=== PATIENT | male | born 1965 | race Caucasian/White ===

== ENCOUNTER → 2021-12-11 | Day surgery (SDC) | payer OTHER ==
[2021-12-07 15:31] LABS: BASOPHILS # (AUTO) 0.1 (0.0-0.1); BASOPHILS % 0.6 % (0.0-1.0); EOSINOPHILS # (AUTO) 0.1 (0.0-0.4); EOSINOPHILS % 1.4 % (0.0-6.0); HEMATOCRIT 46.3 % (38.2-49.6); HEMOGLOBIN 15.1 g/dL (14.0-18.0); LYMPHOCYTES # (AUTO) 2.7 (1.0-3.2); LYMPHOCYTES % 26.1 % (18.0-39.1); MEAN CORPUSCULAR HEMOGLOBIN 28.7 pg (28-32); MEAN CORPUSCULAR HGB CONC 32.6 g/dL (31-35); MEAN CORPUSCULAR VOLUME 87.9 fL (81-99); MONOCYTES # (AUTO) 1.1 (0.2-0.8); NEUTROPHILS # (AUTO) 6.2 (2.1-6.9); NEUTROPHILS % 60.5 % (38.7-80.0); PLATELET COUNT 207 x10e3/uL (140-360); RED BLOOD COUNT 5.27 x10e6/uL (4.3-5.7); RED CELL DISTRIBUTION WIDTH 12.6 % (11.7-14.4)
[2021-12-07 15:54] LABS: ANION GAP 14.2 mmol/L (8-16); CALCIUM 8.9 mg/dL (8.4-10.2); CREATININE, SERUM 1.12 mg/dL (0.72-1.25); POTASSIUM 4.2 mmol/L (3.5-5.1)
[~2021-12-11] MED LIST: BUPIVACAINE 0.25% 30ML SDV ONE; DEXAMETHASONE SOD PHOS INJ 4 MG/ML SDV ONE; FARXIGA10 MG PO; FENTANYL CITRATE/PF 100MCG/2 ML INJ ONE; GLIPIZIDE ER2.5 MG PO; JANUVIA25 MG PO; LIDOCAINE 1% W/EPINEPHRINE 20 ML VIAL ONE; LIPITOR10 MG PO; LISINOPRIL2.5 MG PO; METFORMIN HCL500 MG PO; MIDAZOLAM HCL 2 MG/2 ML VIAL ONE; ONDANSETRON HCL INJ 2MG/ML 2ML 2 MG/ML VIAL ONE; POVIDONE IODINE 0.05% 0.05 % ML PO ONE; PROPOFOL IV EMULSION 10 MG/ML 20 ML VIAL ONE; SEVOFLURANE INHAL SOLN 250 ML PEN BTL ONE; SIMVASTATIN20 MG PO
[2021-12-11 11:20] VITALS: BP 117/68
== END | disposition home or self-care (01) ==
LOC: OR 06:35
PROVIDERS: ATTEND Surgery
DX: K40.90 Unilateral inguinal hernia, without obstruction or gangrene, not specified as recurrent (principal); D17.6 Benign lipomatous neoplasm of spermatic cord; E11.9 Type 2 diabetes mellitus without complications; I10 Essential (primary) hypertension; Z01.810 Encounter for preprocedural cardiovascular examination; Z01.812 Encounter for preprocedural laboratory examination; Z20.822 Contact with and (suspected) exposure to COVID-19; Z88.0 Allergy status to penicillin; Z79.84 Long term (current) use of oral hypoglycemic drugs; Z79.899 Other long term (current) drug therapy; Z86.16 Personal history of COVID-19
CPT/HCPCS: 0223U; 36415 ×2; 49505; 80048; 82948; 85025; 93005; C1781; J1100; J2250; J2405; J2704; J3010

== ENCOUNTER 2024-06-09 20:21 | Inpatient (IN) | payer BC ==
[~2024-06-09] VITALS: Ht 175.3 cm; Wt 104.3 kg
[2024-06-09 20:21] VITALS: TEMP 98.9
[~2024-06-09 20:21] MED LIST changes: -BUPIVACAINE 0.25% 30ML SDV ONE; -DEXAMETHASONE SOD PHOS INJ 4 MG/ML SDV ONE; -FENTANYL CITRATE/PF 100MCG/2 ML INJ ONE; -LIDOCAINE 1% W/EPINEPHRINE 20 ML VIAL ONE; -MIDAZOLAM HCL 2 MG/2 ML VIAL ONE; -ONDANSETRON HCL INJ 2MG/ML 2ML 2 MG/ML VIAL ONE; -POVIDONE IODINE 0.05% 0.05 % ML PO ONE; -PROPOFOL IV EMULSION 10 MG/ML 20 ML VIAL ONE; -SEVOFLURANE INHAL SOLN 250 ML PEN BTL ONE
[2024-06-09 20:43] LABS: BASOPHILS # (AUTO) 0.1 (0.0-0.1); BASOPHILS % 0.5 % (0.0-1.0); EOSINOPHILS # (AUTO) 0.3 (0.0-0.4); EOSINOPHILS % 2.5 % (0.0-6.0); HEMATOCRIT 46.7 % (38.2-49.6); HEMOGLOBIN 15.5 g/dL (14.0-18.0); LYMPHOCYTES # (AUTO) 3.3 (1.0-3.2); LYMPHOCYTES % 31.5 % (18.0-39.1); MEAN CORPUSCULAR HGB CONC 33.2 g/dL (31-35); MEAN CORPUSCULAR VOLUME 87.5 fL (81-99); MONOCYTES # (AUTO) 1.1 (0.2-0.8); MONOCYTES % 10.4 % (4.4-11.3); NEUTROPHILS # (AUTO) 5.8 (2.1-6.9); NEUTROPHILS % 54.5 % (38.7-80.0); PLATELET COUNT 217 x10e3/uL (140-360); RED BLOOD COUNT 5.34 x10e6/uL (4.3-5.7); WHITE BLOOD COUNT 10.61 x10e3/uL (4.8-10.8)
[2024-06-09 20:57] LABS: INR 0.9; PROTHROMBIN TIME 12.7 seconds (11.9-14.5)
[2024-06-09 21:07] LABS: ALBUMIN 4.3 g/dL (3.5-5.0); ALBUMIN/GLOBULIN RATIO 1.3 (0.8-2.0); ANION GAP 15.1 mmol/L (8-16); BILIRUBIN,TOTAL 1.4 mg/dL (0.2-1.2); CALCIUM 9.2 mg/dL (8.4-10.2); CREATININE, SERUM 1.19 mg/dL (0.72-1.25); POTASSIUM 4.1 mmol/L (3.5-5.1); TOTAL PROTEIN 7.7 g/dL (6.5-8.1)
[2024-06-09 21:11] LABS: AMMONIA 41 UG/DL (31-123)
[2024-06-09 21:13] LABS: TROPONIN I 0.143 ng/mL (0-0.300)
[2024-06-09] MEDS: SODIUM CHLORIDE 0.9% 1000ML 1,000 ML IV STA (21:13)
[2024-06-09 21:16] LABS: B-TYPE NATRIURETIC PEPTIDE2 < 10.0 pg/mL (0-100)
[2024-06-09] MEDS ORDERED: ONDANSETRON HCL INJ 2MG/ML 2ML 2 MG/ML VIAL IV PRN (22:45)
[2024-06-09] MEDS ORDERED: Morphine 2mg Syringe 2 MG/ML SYR IV PRN (22:45)
[2024-06-09 23:30] VITALS: PULSE 59
[2024-06-09] MEDS: ASPIRIN 325 MG TAB PO STA (23:36)
[2024-06-09] MEDS: SODIUM CHLORIDE 0.9% 1000ML 1,000 ML IV SCH (23:36)
[2024-06-10] VITALS (9 sets, daily range): BP systolic 139–150; BP diastolic 78–86; PULSE 50–59; RESP 18–20; TEMP 97.3–98.4; O2SAT 97–100
[2024-06-10 06:34] LABS: BASOPHILS % 0.4 % (0.0-1.0); EOSINOPHILS # (AUTO) 0.1 (0.0-0.4); EOSINOPHILS % 1.6 % (0.0-6.0); LYMPHOCYTES # (AUTO) 2.3 (1.0-3.2); MEAN CORPUSCULAR HGB CONC 33.3 g/dL (31-35); MEAN CORPUSCULAR VOLUME 87.1 fL (81-99); MONOCYTES % 11.8 % (4.4-11.3); NEUTROPHILS # (AUTO) 4.7 (2.1-6.9); NEUTROPHILS % 57.7 % (38.7-80.0); PLATELET COUNT 188 x10e3/uL (140-360); RED BLOOD COUNT 4.82 x10e6/uL (4.3-5.7); RED CELL DISTRIBUTION WIDTH 13.1 % (11.7-14.4); WHITE BLOOD COUNT 8.13 x10e3/uL (4.8-10.8)
[2024-06-10 07:16] LABS: ALBUMIN 3.6 g/dL (3.5-5.0); ALBUMIN/GLOBULIN RATIO 1.4 (0.8-2.0); ANION GAP 11.8 mmol/L (8-16); BILIRUBIN,TOTAL 1.5 mg/dL (0.2-1.2); CALCIUM 8.2 mg/dL (8.4-10.2); CREATININE, SERUM 0.83 mg/dL (0.72-1.25); POTASSIUM 3.8 mmol/L (3.5-5.1); TOTAL PROTEIN 6.2 g/dL (6.5-8.1)
[2024-06-10 07:51] LABS: TROPONIN I 0.126 ng/mL (0-0.300)
[2024-06-10] MEDS ORDERED: SODIUM CHLORIDE 0.9% 100 ML ONE (08:27)
[2024-06-10] MEDS ORDERED: IOPAMIDOL 370 MG/ML 100 ML INFUS..BTL INJ ONE (08:27)
[2024-06-10] MEDS ORDERED: GADOBENATE DIMEGLUMINE 1 ML IV ONE (08:49)
[2024-06-10 14:50] LABS: TROPONIN I 0.131 ng/mL (0-0.300)
[2024-06-10] MEDS: CLOPIDOGREL BISULFATE 75 MG TAB PO SCH (17:10)
[2024-06-10] MEDS: ASPIRIN 81 MG CHEW TAB PO SCH (17:10)
[2024-06-10] MEDS: METFORMIN HCL 500 MG TAB PO SCH (17:11)
[2024-06-10] MEDS: FAMOTIDINE 20 MG TAB PO SCH (17:12)
[2024-06-10] MEDS ORDERED: ATORVASTATIN 10 MG TAB PO SCH (21:00)
[2024-06-10] MEDS: ATORVASTATIN 40 MG TAB PO SCH (21:15)
[2024-06-11] VITALS (7 sets, daily range): BP systolic 137–159; BP diastolic 79–88; PULSE 50–59; RESP 17–21; TEMP 97.4–98; O2SAT 97–100
[2024-06-11 06:40] LABS: BASOPHILS % 0.5 % (0.0-1.0); EOSINOPHILS # (AUTO) 0.2 (0.0-0.4); EOSINOPHILS % 2.4 % (0.0-6.0); HEMATOCRIT 42.9 % (38.2-49.6); HEMOGLOBIN 14.2 g/dL (14.0-18.0); LYMPHOCYTES # (AUTO) 2.3 (1.0-3.2); LYMPHOCYTES % 28.9 % (18.0-39.1); MEAN CORPUSCULAR HGB CONC 33.1 g/dL (31-35); MEAN CORPUSCULAR VOLUME 87.6 fL (81-99); MONOCYTES % 12.3 % (4.4-11.3); NEUTROPHILS # (AUTO) 4.5 (2.1-6.9); NEUTROPHILS % 55.4 % (38.7-80.0); PLATELET COUNT 175 x10e3/uL (140-360); RED CELL DISTRIBUTION WIDTH 13.2 % (11.7-14.4); WHITE BLOOD COUNT 8.05 x10e3/uL (4.8-10.8)
[2024-06-11 07:15] LABS: ALBUMIN 3.5 g/dL (3.5-5.0); ALBUMIN/GLOBULIN RATIO 1.3 (0.8-2.0); ANION GAP 12.2 mmol/L (8-16); CALCIUM 8.6 mg/dL (8.4-10.2); CREATININE, SERUM 0.87 mg/dL (0.72-1.25); POTASSIUM 4.2 mmol/L (3.5-5.1); TOTAL PROTEIN 6.1 g/dL (6.5-8.1)
[2024-06-11 07:41] LABS: THYROID STIMULATING HORMONE 2.5 uIU/mL (0.350-4.940)
[2024-06-11] MEDS: GLIPIZIDE 5 MG TAB ER PO SCH (09:32)
[2024-06-11] MEDS: LISINOPRIL 10 MG TAB PO SCH (09:32)
[2024-06-12] VITALS: BP 132/81; PULSE 50; RESP 20; TEMP 97.6; O2SAT 98
[2024-06-12 04:00] VITALS: BP 136/74; PULSE 45; RESP 20; TEMP 97; O2SAT 100
[2024-06-12] MEDS ORDERED: ATORVASTATIN CA40 MG PO (06:41)
[2024-06-12] MEDS ORDERED: ASPIRIN CHEW81 MG PO (06:41)
[2024-06-12] MEDS ORDERED: PLAVIX75 MG PO (06:41)
[2024-06-12 08:00] VITALS: BP 143/75; PULSE 58; RESP 19; TEMP 97.3; O2SAT 100
[2024-06-12 09:11] VITALS: BP 143/75; PULSE 58; RESP 19; TEMP 97.3; O2SAT 100
[2024-06-12] MEDS: CYANOCOBALAMIN INJ 1,000 MCG/ML VIAL IM ONE (10:04)
[2024-06-12 10:05] VITALS: BP 143/75
[2024-06-12] MEDS ORDERED: ONDANSETRON HCL 4 MG ORAL DISINTEGRATING TAB PO PRN (11:00)
== END 2024-06-12 12:38 | disposition home or self-care (01) | DRG 66 ==
LOC: ER 20:32 → ERHOLD 22:44 → MED/SURG3 06-10 00:20 → OBSVTOIN 06-12 12:14
PROVIDERS: ADMIT Family Medicine; ATTEND Family Medicine
DX: I63.40 Cerebral infarction due to embolism of unspecified cerebral artery (principal); E11.9 Type 2 diabetes mellitus without complications; R47.1 Dysarthria and anarthria; I10 Essential (primary) hypertension; E78.49 Other hyperlipidemia; R29.701 NIHSS score 1; Z79.82 Long term (current) use of aspirin; Z79.02 Long term (current) use of antithrombotics/antiplatelets; Z79.84 Long term (current) use of oral hypoglycemic drugs; Z88.0 Allergy status to penicillin
CPT/HCPCS: 36415; 70496; 70498; 70553; 71045; 80053; 82140; 82550; 82607; 82948; 83036; 83690; 83880; 84443; 84484; 85025; 85610; 92522; 93005; 93306; 93308; 95819; 99284; G0378; J3420; J7030; J7050; Q9967